=== PATIENT | female | born 2000 ===

== ENCOUNTER 2022-04-07 15:08 | Outpatient (CLI) | payer OTHER | END 2022-04-07 16:00 | disposition home or self-care (01) | LOC: PRENATAL 15:08 | PROVIDERS: ATTEND Obstetrics & Gynecology Maternal & Fetal Medicine | DX: O36.80X0 Pregnancy with inconclusive fetal viability, not applicable or unspecified (principal); Z14.8 Genetic carrier of other disease; Z3A.11 11 weeks gestation of pregnancy ==

== ENCOUNTER 2022-06-06 10:46 | Outpatient (CLI) | payer OTHER | END 2022-06-06 12:35 | disposition home or self-care (01) | LOC: PRENATAL 10:46 | PROVIDERS: ATTEND Obstetrics & Gynecology Maternal & Fetal Medicine | DX: O35.9XX0 Maternal care for (suspected) fetal abnormality and damage, unspecified, not applicable or unspecified (principal); O35.3XX0 Maternal care for (suspected) damage to fetus from viral disease in mother, not applicable or unspecified; Z3A.20 20 weeks gestation of pregnancy ==

== ENCOUNTER 2022-08-29 14:58 | Outpatient (CLI) | payer OTHER | END 2022-08-29 15:52 | disposition home or self-care (01) | LOC: PRENATAL 14:58 | PROVIDERS: ATTEND Obstetrics & Gynecology Maternal & Fetal Medicine | DX: O26.849 Uterine size-date discrepancy, unspecified trimester (principal); O36.8199 Decreased fetal movements, unspecified trimester, other fetus; O35.9XX0 Maternal care for (suspected) fetal abnormality and damage, unspecified, not applicable or unspecified; Z3A.32 32 weeks gestation of pregnancy ==

== ENCOUNTER 2022-10-04 22:38 | Outpatient (CLI) | payer OTHER ==
[2022-10-04] MEDS ORDERED: PRENATAL TABLE1 EAC1 PO (22:53)
[2022-10-04] MEDS ORDERED: IRON325 MG PO (22:53)
== END 2022-10-05 19:59 | disposition home or self-care (01) ==
LOC: OBS/DEL 22:38
PROVIDERS: ATTEND Obstetrics & Gynecology
DX: O47.1 False labor at or after 37 completed weeks of gestation (principal); O23.33 Infections of other parts of urinary tract in pregnancy, third trimester; N39.0 Urinary tract infection, site not specified; Z3A.37 37 weeks gestation of pregnancy

== ENCOUNTER 2022-10-17 08:32 | Inpatient (IN) | payer OTHER ==
[~2022-10-17] VITALS: Ht 177.8 cm; Wt 76.7 kg
[~2022-10-17 08:32] MED LIST: IRON325 MG PO; PRENATAL TABLE1 EAC1 PO
== END 2022-10-20 15:23 | disposition home or self-care (01) | DRG 807 ==
LOC: OB/GYN 10-18 06:54 → LDR 10-18 06:54 → OB/GYN 10-18 14:34
PROVIDERS: ADMIT Obstetrics & Gynecology; ATTEND Obstetrics & Gynecology
PROC: 10E0XZZ Delivery of Products of Conception, External Approach (ICD-10-PCS; principal; 2022-10-18)
PROC: 0KQM0ZZ Repair Perineum Muscle, Open Approach (ICD-10-PCS; 2022-10-18)
PROC: 0W8NXZZ Division of Female Perineum, External Approach (ICD-10-PCS; 2022-10-18)
PROC: 4A1HXCZ Monitoring of Products of Conception, Cardiac Rate, External Approach (ICD-10-PCS; 2022-10-18)
DX: O70.1 Second degree perineal laceration during delivery (principal); Z37.0 Single live birth; Z3A.39 39 weeks gestation of pregnancy; Z20.822 Contact with and (suspected) exposure to COVID-19

== ENCOUNTER 2024-04-15 13:53 | Outpatient (CLI) | payer OTHER | END 2024-04-15 13:55 | disposition home or self-care (01) | LOC: PRENATAL 13:53 | PROVIDERS: ATTEND Obstetrics & Gynecology Maternal & Fetal Medicine | DX: O36.80X0 Pregnancy with inconclusive fetal viability, not applicable or unspecified (principal); Z36.82 Encounter for antenatal screening for nuchal translucency; O36.1999 Maternal care for other isoimmunization, unspecified trimester, other fetus; Z3A.13 13 weeks gestation of pregnancy ==

== ENCOUNTER 2024-06-10 14:38 | Outpatient (CLI) | payer OTHER | END 2024-06-10 14:39 | disposition home or self-care (01) | LOC: PRENATAL 14:38 | PROVIDERS: ATTEND Obstetrics & Gynecology Maternal & Fetal Medicine | DX: O44.00 Complete placenta previa NOS or without hemorrhage, unspecified trimester (principal); O36.1999 Maternal care for other isoimmunization, unspecified trimester, other fetus; Z3A.21 21 weeks gestation of pregnancy ==

== ENCOUNTER 2024-07-26 09:01 | Outpatient (CLI) | payer OTHER | END 2024-07-26 09:02 | disposition home or self-care (01) | LOC: PRENATAL 09:01 | PROVIDERS: ATTEND Obstetrics & Gynecology Maternal & Fetal Medicine | DX: O26.849 Uterine size-date discrepancy, unspecified trimester (principal); O36.8199 Decreased fetal movements, unspecified trimester, other fetus; O36.1999 Maternal care for other isoimmunization, unspecified trimester, other fetus; Z3A.29 29 weeks gestation of pregnancy ==

== ENCOUNTER → 2024-09-06 09:21 | Outpatient (CLI) | payer OTHER | END | disposition home or self-care (01) | LOC: PRENATAL 09:21 | PROVIDERS: ATTEND Obstetrics & Gynecology Maternal & Fetal Medicine | DX: O26.849 Uterine size-date discrepancy, unspecified trimester (principal); O36.8199 Decreased fetal movements, unspecified trimester, other fetus; O36.1999 Maternal care for other isoimmunization, unspecified trimester, other fetus; Z14.8 Genetic carrier of other disease; Z3A.35 35 weeks gestation of pregnancy ==

== ENCOUNTER 2024-10-08 14:30 | Inpatient (IN) | payer OTHER ==
[~2024-10-08] VITALS: Ht 177.8 cm; Wt 83.0 kg
[2024-10-09 11:39] VITALS: BP 106/76
[2024-10-09] MEDS ORDERED: AMPICILLIN SODIUM 2,000 MG VIAL ONE (12:17)
[2024-10-09] MEDS ORDERED: RINGERS SOLUTION,LACTATED 1,000 ML IV SCH (12:30)
[2024-10-09] MEDS ORDERED: AMPICILLIN SODIUM 2,000 MG VIAL IV ONE (12:30)
[2024-10-09 12:51] LABS: BASO % 0.3 % (0.1-1.2); EOS # 0.25 (0.04-0.54); LYMPH # 1.92 (1.18-3.74); LYMPH % 15.4 % (19.3-53.1); MEAN CORPUSCULAR HEMOGLOBIN 29.1 pg (25.6-32.2); MONO # 0.91 (0.24-0.82); MONO % 7.3 % (4.7-12.5); NEUT # 9.18 (1.56-6.13); PH,URINE 5.5 (5.0-8.0); PLATELET COUNT 192 K/uL (163-369); RED BLOOD COUNT 3.78 M/uL (3.93-5.22); RED CELL DISTRIBUTION WIDTH 14.5 % (11.6-14.4); URINE APPEARANCE Cloudy; URINE BILIRRUBIN Small (NEGATIVE); URINE BLOOD Small; URINE COLOR Dark Yellow; URINE GLUCOSE Negative (NEGATIVE); URINE KETONE Trace (NEGATIVE); URINE LEUKOCYTE Moderate; URINE NITRATE Negative; URINE PROTEIN 30 (NEGATIVE)
[2024-10-09 12:56] LABS: URINE CAST 2.65 uL (0.0-1.40); URINE EPITHELIAL CELLS 174.3 uL (0.0-38.8); URINE RBC 7.9 uL (0.0-20.8)
[2024-10-09] MEDS ORDERED: AMPICILLIN SODIUM 1,000 MG VIAL IV SCH (13:00)
[2024-10-09 13:11] LABS: INR 0.94; PARTIAL THROMBOPLASTIN TIME 27.3 SECONDS (22.0-34.0); PROTHROMBIN TIME 10.3 SECONDS (9.0-11.5)
[2024-10-09 13:30] LABS: URINE BACTERIA > 9821.5 uL (0.0-1933); URINE YEAST MANY /hpf
[2024-10-09] MEDS ORDERED: OXYTOCIN 20 UNITS/500ML RL PIGGYBAG IV ONE (13:45)
[2024-10-09] MEDS ORDERED: ERYTHROMYCIN BASE OPHT 1GM EACH TUBE OP ONE (13:59)
[2024-10-09] MEDS ORDERED: LIDOCAINE HCL 1% 10ML VIAL ONE (13:59)
[2024-10-09] MEDS ORDERED: OXYTOCIN 20 UNITS/1000ML RL PIGGYBAG IV ONE (13:59)
[2024-10-09] MEDS ORDERED: CHLORHEXIDINE GLUCONATE 120 ML BOTTLE TOP ONE (13:59)
[2024-10-09 14:03] LABS: ALBUMIN 3.3 gm/dL (3.4-5.0); BILIRUBIN TOTAL 0.61 mg/dL (0.3-1.2); CALCIUM 9.1 mg/dL (8.5-10.1); CREATININE SERUM 0.55 mg/dL (0.55-1.02); GFR 138.21; GLOBULINA 3.9 G/DL (2.4-3.5); POTASSIUM 3.84 mEq/L (3.5-5.1); TOTAL PROTEIN 7.2 gm/dL (6.4-8.2)
[2024-10-09] MEDS ORDERED: OXYTOCIN 500 ML IV ONE (14:15)
[2024-10-09 15:59] VITALS: BP 128/69
[2024-10-09] MEDS ORDERED: IBUprofen 400 MG TABLET PO ONE (16:42)
[2024-10-09] MEDS ORDERED: FF) RHO(D) IMMUNE GLOBULIN (POM) IM SCH (17:00)
[2024-10-09] MEDS ORDERED: OXYTOCIN 1,000 ML IV SCH (17:00)
[2024-10-09] MEDS ORDERED: CHLORHEXIDINE GLUCONATE 120 ML BOTTLE TOP SCH (17:00)
[2024-10-09] MEDS ORDERED: IBUprofen 400 MG TABLET PO SCH (18:00)
[2024-10-09 20:28] VITALS: BP 114/67
[2024-10-09 23:15] VITALS: BP 119/69
[2024-10-10] VITALS: BP 107/56; BP 145/86
[2024-10-10 06:43] LABS: BASO % 0.3 % (0.1-1.2); EOS # 0.27 (0.04-0.54); EOS % 1.8 % (0.7-7.0); HEMATOCRIT 32.1 % (34.1-44.9); HEMOGLOBIN 10.5 g/dL (11.2-15.7); LYMPH # 3.38 (1.18-3.74); LYMPH % 22.1 % (19.3-53.1); MEAN CORPUSCULAR HEMOGLOBIN 28.4 pg (25.6-32.2); MONO # 1.18 (0.24-0.82); MONO % 7.7 % (4.7-12.5); NEUT # 10.24 (1.56-6.13); NEUT % 66.9 % (34.0-71.1); PLATELET COUNT 181 K/uL (163-369); RED CELL DISTRIBUTION WIDTH 14.5 % (11.6-14.4)
[2024-10-10 09:04] VITALS: BP 132/76
[2024-10-10 13:39] VITALS: BP 112/61
[2024-10-10 16:14] VITALS: BP 104/66
[2024-10-11 00:46] VITALS: BP 105/65
[2024-10-11 08:00] VITALS: BP 114/74
== END 2024-10-11 12:24 | disposition home or self-care (01) | DRG 807 ==
LOC: LDR 10-09 12:16 → OB/GYN 10-09 12:16 → LDR 10-09 12:19 → OB/GYN 10-09 19:02
PROVIDERS: Obstetrics & Gynecology; ADMIT Obstetrics & Gynecology; ATTEND Obstetrics & Gynecology
PROC: 10E0XZZ Delivery of Products of Conception, External Approach (ICD-10-PCS; principal; 2024-10-09)
PROC: 0UQG7ZZ Repair Vagina, Via Natural or Artificial Opening (ICD-10-PCS; 2024-10-09)
PROC: 0UQMXZZ Repair Vulva, External Approach (ICD-10-PCS; 2024-10-09)
PROC: 4A1HXCZ Monitoring of Products of Conception, Cardiac Rate, External Approach (ICD-10-PCS; 2024-10-09)
DX: O70.1 Second degree perineal laceration during delivery (principal); Z37.0 Single live birth; O71.82 Other specified trauma to perineum and vulva; O99.824 Streptococcus B carrier state complicating childbirth; Z3A.38 38 weeks gestation of pregnancy